=== PATIENT | male | born 1945 | race Two or more races ===

== ENCOUNTER 2021-05-14 15:58 | Inpatient (IN) | payer OTHER ==
[~2021-05-14] VITALS: Ht 154.9 cm; Wt 74.8 kg
[2021-05-14] MEDS ORDERED: METFORMIN HCL500 MG (16:47)
[2021-05-14] MEDS ORDERED: CAPTOPRIL HCTZ PO (16:49)
[2021-05-14] MEDS ORDERED: GLYBURID-METFO1 EACH PO (16:49)
[2021-05-14] MEDS ORDERED: PEPCID AC10 MG PO (16:50)
[2021-05-14] MEDS ORDERED: ACID REDUCER20 M1 PO (16:50)
== END 2021-05-22 16:41 | disposition home or self-care (01) | DRG 395 ==
LOC: ER 15:58 → SURG 17:59 → SEC-K 17:59 → SURG 05-15 03:38
PROVIDERS: ADMIT Surgery; ATTEND Surgery
PROC: 02H633Z Insertion of Infusion Device into Right Atrium, Percutaneous Approach (ICD-10-PCS; 2021-05-15)
PROC: BW2110Z Computerized Tomography (CT Scan) of Abdomen and Pelvis using Low Osmolar Contrast, Unenhanced and Enhanced (ICD-10-PCS; 2021-05-20)
PROC: 0DBK8ZX Excision of Ascending Colon, Via Natural or Artificial Opening Endoscopic, Diagnostic (ICD-10-PCS; principal; 2021-05-21)
DX: K66.8 Other specified disorders of peritoneum (principal); K63.5 Polyp of colon; I10 Essential (primary) hypertension; E11.9 Type 2 diabetes mellitus without complications; F10.20 Alcohol dependence, uncomplicated; Z20.822 Contact with and (suspected) exposure to COVID-19

== ENCOUNTER 2021-12-08 16:52 | Inpatient (IN) | payer OTHER ==
[~2021-12-08] VITALS: Ht 160 cm; Wt 82.6 kg
[~2021-12-08 16:52] MED LIST: ACID REDUCER20 M1 PO; CAPTOPRIL HCTZ PO; GLYBURID-METFO1 EACH PO; METFORMIN HCL500 MG; PEPCID AC10 MG PO
[2021-12-08] MEDS ORDERED: PROTONIX40 MG (17:03)
[2021-12-08] MEDS ORDERED: HYDROCHLOROTHIA25 MG (17:04)
[2021-12-17] MEDS ORDERED: PERCOCET 5-3251 EACH PO (16:10)
[2021-12-17] MEDS ORDERED: PROTONIX40 MG PO (16:11)
[2021-12-17] MEDS ORDERED: PEPCID AC20 MG PO (16:11)
== END 2021-12-17 21:21 | disposition home or self-care (01) | DRG 337 ==
LOC: ER 16:52 → SURG 20:30
PROVIDERS: ADMIT Surgery; ATTEND Surgery
PROC: 0DN80ZZ Release Small Intestine, Open Approach (ICD-10-PCS; principal; 2021-12-10)
PROC: 0DBU0ZZ Excision of Omentum, Open Approach (ICD-10-PCS; 2021-12-10)
PROC: BW2110Z Computerized Tomography (CT Scan) of Abdomen and Pelvis using Low Osmolar Contrast, Unenhanced and Enhanced (ICD-10-PCS; 2021-12-10)
PROC: 02HV33Z Insertion of Infusion Device into Superior Vena Cava, Percutaneous Approach (ICD-10-PCS; 2021-12-10)
PROC: 3E0436Z Introduction of Nutritional Substance into Central Vein, Percutaneous Approach (ICD-10-PCS; 2021-12-10)
DX: K66.0 Peritoneal adhesions (postprocedural) (postinfection) (principal); K66.8 Other specified disorders of peritoneum; R14.0 Abdominal distension (gaseous); K57.10 Diverticulosis of small intestine without perforation or abscess without bleeding; Z86.010 Personal history of colon polyps; E11.9 Type 2 diabetes mellitus without complications; Z20.822 Contact with and (suspected) exposure to COVID-19; Z79.4 Long term (current) use of insulin